=== PATIENT | male | born 1935 | race Caucasian/White ===

== ENCOUNTER 2017-10-28 10:31 | Outpatient (CLI) | payer MEDICARE ==
--- NOTE | 2017-10-28 11:45 | RAD ---
TWO VIEWS CHEST: Date: 10-28-17 Comparison: None. History: Congestive heart failure, exacerbation. FINDINGS: Heart is enlarged. Midline sternotomy wires are present. There is no pneumothorax, pleural fluid, foc al consolidation or alveolar edema. There is multilevel degenerative change within the thoracic spine . Midline sternotomy wires and a mechanical valve are present. IMPRESSION: Post-operative changes. Prominent cardiac silhouette with no alveolar edema or lobar consolidation. POS: [facility]
== END 2017-10-28 10:32 | disposition home or self-care (01) ==
LOC: NAV RAD 10:31
PROVIDERS: ATTEND Family Medicine
DX: I50.9 Heart failure, unspecified (principal); Z98.890 Other specified postprocedural states
CPT/HCPCS: 71046